=== PATIENT | male | born 1980 | race Two or more races ===

== ENCOUNTER 2022-02-25 02:14 | Emergency (ER) | payer MEDICAID ==
[~2022-02-25] VITALS: Ht 185.4 cm; Wt 90.7 kg
[2022-02-25 02:25] VITALS: BP 134/75
== END 2022-02-25 07:22 | disposition left against medical advice (07) ==
LOC: ER 02:14
DX: M79.604 Pain in right leg (principal); Z53.21 Procedure and treatment not carried out due to patient leaving prior to being seen by health care provider

== ENCOUNTER 2024-09-07 15:05 | Emergency (ER) | payer MEDICAID ==
[~2024-09-07] VITALS: Ht 188 cm; Wt 92.0 kg
[2024-09-07 15:28] VITALS: BP 112/70; PULSE 92; RESP 16; TEMP 98.1; O2SAT 98
[2024-09-07] MEDS: LIDOCAINE 1% HCL (LOCAL ANESTH.) INJ 20ML MDV ID ONE (15:52)
[2024-09-07] MEDS: TETANUS-DIPTH-ACEL PERTUSSIS 0.5ML SYR Tdap IM ONE (15:53)
[2024-09-07] MEDS: cefTRIAXone SOD 1,000 MG VL IM ONE (15:53)
[2024-09-07] MEDS: BACITRACIN TOP OINT 1 UD PKG TOP ONE (15:54)
[2024-09-07] MEDS: LIDOCAINE W/ EPINEPHRINE 2% INJ 20ML VIAL IJ ONE (16:25)
--- NOTE | 2024-09-07 16:32 | ED.PDOC ---
HPI Comments Portions of this chart may have been created with an modal fluency direct voice recognition software. Occasional wrong-word or "sound-alike" substitutions may have occurred due to the inherent limitations of voice recognition software. Please read the chart carefully and recognize, using context, where these substitutions have occurred. This is a pleasant 43-year-old homeless male that presents for a laceration to the left MCP volar aspect. Accident occurred while patient was removing wax from a glass candle and the glass broke Denies numbness tingling to the hand. Chief Complaint: Laceration Time Seen by MD: 15:15 Primary Care Provider: NONE Reviewed Notes: Nurses Notes, Medications, Allergies Allergies: Coded Allergies: NO KNOWN ALLERGIES (Unverified , 02/25/22) Information Source: Patient Mode of Arrival: Ambulatory Complexity: Complex Laceration Length (cm): 4 Past Medical History PAST MEDICAL HISTORY: Denies Surgical History: Denies all surgeries Family History Family History: Reviewed,noncontributory to illness Social History Smoker: Non-Smoker Alcohol: Denies ETOH Use Drugs: Denies Drug Use All Other Systems: Reviewed and Negative (Per HPI) Physical Exam General Appearance: No Apparent Distress, Normal HEENT: Normal ENT Inspection, Pharynx Normal, TMs Normal Neck: Full Range of Motion, Non-Tender, Normal, Normal Inspection Respiratory: Chest Non-Tender, Lungs Clear, No Accessory Muscle Use, No Respiratory Distress, Normal Breath Sounds Cardiovascular: No Edema, No JVD, No Murmur, No Gallop, Normal Peripheral Pulses, Regular Rate/Rhythm Breast Exam: Deferred Gastrointestinal: No Organomegaly, Non Tender, No Pulsatile Mass, Normal Bowel Sounds, Soft Genitalia: Deferred Pelvic: Deferred Rectal: Deferred Extremities: No calf tenderness, Normal capillary refill, Normal inspection, Normal range of motion, Non-tender, No pedal edema Musculoskeletal : Apperance: Normal Neurologic: Alert, rack loader II-XII nml as Tested, No Motor Deficits, Normal Affect, Normal Mood, No Sensory Deficits Cerebellar Function: Normal Reflexes: Normal Skin: Dry, Normal Color, Warm Lymphatic: No Adenopathy Was a procedure done? Was a procedure done?: Yes Sedation Sedation?: No Laceration Repair : Location Left thumb Length 4 cm Anesthetic: Lidocaine Laceration Repair Prep: Saline, Betadine, by Irrigation, Manual Scrub Laceration Repair Wound Comple: epidermis/dermis repair Laceration Repair: Simple (4-0), Bacitracin, Non-adherent gauze, Gauze Images 1 - 4 cm lac. no fb. no tendon injury. distal sensation intact. cap refill < 3 sec. radial pulses 2+ Differential diagnosis Generic Laceration: Abrasion/Contusion, Laceration, Avulsion X-Ray, Labs, Meds, VS Vital Signs Date Time Temp Pulse Resp B/P (MAP) Pulse Ox O2 Delivery O2 Flow Rate FiO2 09/07/24 15:28 98.1 92 16 112/70 (84) 98 98.1 09/07/24 15:28 92 16 98 Room Air 09/07/24 15:14 98.1 92 16 112/70 (84) 98 Current Medications Medications (Trade) Dose Ordered Sig/Genesis Route Start Time Stop Time Status Last Admin Lidocaine HCl (Xylocaine 1%) 4 ml ONCE ONCE ID 09/07/24 15:45 09/07/24 15:46 DC 09/07/24 15:52 Bacitracin 1 applic ONCE ONCE TOP 09/07/24 15:45 09/07/24 15:46 DC 09/07/24 15:54 Diphtheria/ Tetanus/Acell Pertussis (Boostrix T-Dap) 0.5 ml ONCE ONCE IM 09/07/24 15:45 09/07/24 15:46 DC 09/07/24 15:53 Ceftriaxone Sodium (Rocephin) 1,000 mg ONCE ONCE IM 09/07/24 15:45 09/07/24 15:46 DC 09/07/24 15:53 Lidocaine/ Epinephrine (Lidocaine/ Epinephrine 2% Inj) 2 ml ONCE ONCE IJ 09/07/24 16:30 09/07/24 16:31 DC 09/07/24 16:25 X-Ray, Labs, Meds, VS Comment On reevaluation, patient had symptomatic improvement. Patient is stable for discharge at this time. External notes reviewed. Test results and diagnostic imaging interpreted. All diagnostic findings, discharge care, education and instructions provided Follow-up with PCP in 2 to 3 days Patient verbalized understanding and agreed to treatment plan Vital signs stable, afebrile, no acute distress noted Patient ambulatory with strong steady gait Advised to return precautions for any new or worsening symptoms, return to ER immediately for re-evaluation Patient is aware that the purpose of this visit was for an acute medical emergency requiring emergent stabilization. Chronic conditions, including malignancies have not been ruled out. Patient is instructed to follow up with PCP as directed and discharge instructions for continued care and workup. If unable to arrange follow-up, patient is to return to the emergency department for reassessment. Patient (parent or legal guardian if applicable) was given verbal and written discharge instructions and acknowledges understanding. Time of 1ST Reevaluation: 17:37 Reevaluation 1ST: Improved Patient Education/Counseling: Diagnosis, Treatment Family Education/Counseling: Diagnosis, Treatment Departure 1 Departure Time of Disposition: 17:37 Impression: Primary Impression: Laceration Disposition: HOME / SELF CARE / HOMELESS Condition: Stable e-Prescriptions Cephalexin Monohydrate (Cephalexin) 500 Mg Cap 1 CAP PO QID for 5 Days, #20 CAP 0 Refills Prov: LAUREANO RAMIRES NP 09/07/24 Ibuprofen (Ibuprofen) 600 Mg Tab 1 TAB PO TID for 10 Days, #30 TAB 0 Refills Prov: LAUREANO RAMIRES NP 09/07/24 Discharged With: Self Critical Care Note Critical Care Time?: No Stability Stability form required: No Heart Score Heart Score: Heart Score Response (Comments) Value History N/A 0 EKG N/A 0 Age N/A 0 Risk Factors N/A 0 Troponin N/A 0 Total 0 LAUREANO RAMIRES NP Sep 07, 2024 16:32
[2024-09-07] MEDS ORDERED: IBUP-1454 PO (17:38)
[2024-09-07] MEDS ORDERED: CEPH500C PO (17:38)
== END 2024-09-07 17:43 | disposition home or self-care (01) ==
LOC: EDBD 15:05 → ER 15:05 → EDUNIT# 15:05 → ER 17:43
DX: S61.012A Laceration without foreign body of left thumb without damage to nail, initial encounter (principal); Z59.00 Homelessness unspecified; W25.XXXA Contact with sharp glass, initial encounter; Y93.89 Activity, other specified; Y92.89 Other specified places as the place of occurrence of the external cause; Y99.8 Other external cause status
CPT/HCPCS: 12002; 90471; 90715; 96372; 99284; J0696; J2003